=== PATIENT | male | born 1995 | race Caucasian/White ===

== ENCOUNTER 2016-12-15 05:07 | Inpatient (IN) | payer MEDICAID ==
[~2016-12-15] VITALS: Ht 167.6 cm; Wt 79.4 kg
[2016-12-15] MEDS ORDERED: POVIDONE-IODINE 10% 15 ML SOLUTION UD TP ONE (05:30)
[2016-12-15] MEDS ORDERED: albuterol IH (05:31)
[2016-12-15] MEDS ORDERED: PERTUSS(ACELL),DIPH,TET VAC/PF 0.5 ML VIAL IM ONE (07:00)
[2016-12-15] MEDS ORDERED: BACITRACIN 0.9 GM PACKET OINTMENT TP ONE (08:00)
[2016-12-15 09:11] LABS: APPEARANCE,URINE CLOUDY (CLEAR); GLUCOSE, URINE (UA) NEGATIVE (NEGATIVE); KETONES,URINE 40 mg/dL (NEGATIVE); LEUKOCYTE ESTERASE ,URINE NEGATIVE (NEGATIVE); OCCULT BLOOD,URINE NEGATIVE (NEGATIVE); PROTEIN,URINE TRACE (NEGATIVE)
[2016-12-15 09:12] LABS: ADD UA MICROSCOPIC YES
[2016-12-15 09:25] LABS: RBC,URINE None Seen /HPF (0-2)
[2016-12-15 09:26] LABS: SQUAMOUS EPITHELIAL CELL,UR Few /LPF (None Seen); URINALYSIS COMMENT Moderate Sperm seen.
[2016-12-15] MEDS: LORazepam 2 MG TABLET PO PRN ×2 (12:40→20:49)
[2016-12-15] MEDS: HALOPERIDOL 5 MG TABLET PO PRN ×2 (12:40→21:14)
[2016-12-15 16:16] VITALS: BP 129/66
[2016-12-15 16:49] VITALS: BP 129/66
[2016-12-15] MEDS ORDERED: ALBU8HFA IH (16:59)
[2016-12-15] MEDS ORDERED: IBUPROFEN 400 MG TABLET PO PRN (17:00)
[2016-12-15] MEDS ORDERED: ACETAMINOPHEN 325 MG TABLET PO PRN (17:00)
[2016-12-15] MEDS ORDERED: INFLUENZA VIRUS VACCINE QVS 2017-18 (3YR+)/PF 60 MCG/0.5 ML SYRINGE IM ONE (17:45)
[2016-12-15] MEDS ORDERED: HALOPERIDOL LACTATE 5 MG/ML VIAL IM ONE (22:45)
[2016-12-15] MEDS ORDERED: LORazepam 2 MG/ML VIAL IM ONE (22:45)
[2016-12-15] MEDS ORDERED: DiphenhydrAMINE HCL 50 MG/ML VIAL IM ONE (22:45)
[2016-12-16 08:32] VITALS: BP 108/58
[2016-12-16 09:02] LABS: BASOPHILS # (AUTO) 0.05 K/uL (0.00-0.20); BASOPHILS % (AUTO) 0.6 % (0.0-2.0); EOSINOPHILS # (AUTO) 0.42 K/uL (0.00-0.70); EOSINOPHILS % (AUTO) 4.64 % (1.0-6.0); HEMOGLOBIN 16.6 g/dL (13.5-17.5); LYMPHOCYTES # (AUTO) 3.5 K/uL (1.0-4.8); LYMPHOCYTES % (AUTO) 38.7 % (22.0-44.0); MEAN CORPUSCULAR HEMOGLOBIN 30.2 pg (26.0-34.0); MEAN CORPUSCULAR HGB CONC 33.8 G/dL (31.0-37.0); MEAN CORPUSCULAR VOLUME 89 fL (80-100); MONOCYTES # (AUTO) 0.9 K/uL (0.1-1.0); MONOCYTES % (AUTO) 9.9 % (2.0-9.0); NEUTROPHILS # (AUTO) 4.2 K/uL (1.8-7.7); NEUTROPHILS % (AUTO) 46.2 % (40.0-70.0); PLATELET COUNT (AUTO) 202 K/uL (150-450); RED BLOOD CELL COUNT(AUTO) 5.49 MIL/uL (4.50-5.90); RED CELL DISTRIBUTION WIDTH 12.2 % (11.5-14.5)
[2016-12-16] MEDS: LORazepam 2 MG TABLET PO PRN ×2 (09:49→17:14)
[2016-12-16] MEDS: HALOPERIDOL 5 MG TABLET PO PRN (09:49)
[2016-12-16 10:01] LABS: ALANINE AMINOTRANSFERASE 24 U/L (12-78); ALBUMIN 4.3 g/dL (3.4-5.0); ANION GAP 10 mmol/L (8-16); ASPARTATE AMINOTRANSFERASE 36 U/L (15-37); BILIRUBIN,TOTAL 0.8 mg/dL (0.1-1.0); CALCIUM, TOTAL 9.2 mg/dL (8.8-10.5); CARBON DIOXIDE 29 mmol/L (22-29); CHLORIDE 103 mmol/L (98-107); CHOL/HDL RATIO 2.7 (4.2-7.3); CREATININE 1.02 mg/dL (0.60-1.30); GLOMERULAR FILTR. RATE CALC > 60 mL/min (>60); POTASSIUM 3.9 mmol/L (3.5-5.1); SODIUM SERUM 142 mmol/L (136-145); THYROID STIMULATING HORMONE 1.35 uIU/mL (0.36-3.74); TOTAL PROTEIN, SERUM 7.6 g/dL (6.4-8.2); UREA NITROGEN, BLOOD 11 mg/dL (7-18)
[2016-12-16] MEDS: OLANZapine 5 MG RAPDIS TABLET PO SCH ×3 (11:02→17:14)
[2016-12-16 16:08] VITALS: BP 115/65
[2016-12-16] MEDS: ALBUTEROL SULFATE HFA 90 MCG/PUFF 8 GM INHALER IH PRN (17:41)
[2016-12-16] MEDS ORDERED: ACETAMINOPHEN 325 MG TABLET PO PRN (18:15)
[2016-12-16] MEDS ORDERED: IBUPROFEN 400 MG TABLET PO PRN (18:15)
[2016-12-17 08:42] VITALS: BP 104/62
[2016-12-17] MEDS: OLANZapine 5 MG RAPDIS TABLET PO SCH ×2 (08:59→16:56)
[2016-12-17] MEDS: LORazepam 2 MG TABLET PO PRN ×2 (09:00→16:57)
[2016-12-17 16:00] VITALS: BP 112/66
[2016-12-17] MEDS: ALBUTEROL SULFATE HFA 90 MCG/PUFF 8 GM INHALER IH PRN (22:29)
[2016-12-17] MEDS: ZOLPIDEM TARTRATE 10 MG TABLET PO PRN (22:29)
[2016-12-18 06:33] VITALS: BP 117/70
[2016-12-18 08:13] VITALS: BP 120/76
[2016-12-18] MEDS: LORazepam 2 MG TABLET PO PRN ×2 (08:37→16:57)
[2016-12-18] MEDS: OLANZapine 5 MG RAPDIS TABLET PO SCH ×2 (08:37→16:57)
[2016-12-18 16:00] VITALS: BP 114/67
[2016-12-18] MEDS: ZOLPIDEM TARTRATE 10 MG TABLET PO PRN (22:47)
[2016-12-19 00:05] VITALS: BP 102/66
[2016-12-19] MEDS: LORazepam 2 MG TABLET PO PRN (08:14)
[2016-12-19] MEDS: OLANZapine 5 MG RAPDIS TABLET PO SCH (08:14)
[2016-12-19 08:17] VITALS: BP 127/82
[2016-12-19] MEDS ORDERED: OLAN5TAB40 PO (14:00)
== END 2016-12-19 15:30 | disposition home or self-care (01) | DRG 750 ==
LOC: EMS 05:09 → B3A 14:55
PROVIDERS: ADMIT Psychiatry & Neurology Psychiatry; ATTEND Psychiatry & Neurology Child & Adolescent Psychiatry
DX: F20.0 Paranoid schizophrenia (principal); F29 Unspecified psychosis not due to a substance or known physiological condition; F12.90 Cannabis use, unspecified, uncomplicated; J45.909 Unspecified asthma, uncomplicated; S61.411A Laceration without foreign body of right hand, initial encounter; W45.8XXA Other foreign body or object entering through skin, initial encounter; Y93.89 Activity, other specified; Y92.89 Other specified places as the place of occurrence of the external cause; Y99.8 Other external cause status; Z28.21 Immunization not carried out because of patient refusal
CPT/HCPCS: 83036; 84443; 90715; 99285; J1200; J1630; J2060; J3535

== ENCOUNTER 2016-12-21 13:49 | Emergency (ER) | payer MEDICAID ==
[~2016-12-21 13:49] MED LIST: OLAN5TAB40 PO
== END 2016-12-21 14:06 | disposition left against medical advice (07) ==
LOC: EMS 13:57
DX: Z00.8 Encounter for other general examination (principal); Z53.21 Procedure and treatment not carried out due to patient leaving prior to being seen by health care provider

== ENCOUNTER 2016-12-21 20:21 | Emergency (ER) | payer MEDICAID, OTHER ==
[~2016-12-21] VITALS: Ht 170.2 cm; Wt 65.9 kg
[2016-12-21] MEDS ORDERED: OLANZapine 5 MG TABLET PO ONE (21:00)
[2016-12-21] MEDS ORDERED: LORazepam 1 MG TABLET PO ONE (21:00)
[2016-12-21 21:05] VITALS: BP 139/95
== END 2016-12-21 21:25 | disposition home or self-care (01) ==
LOC: EMS 20:24
DX: F20.9 Schizophrenia, unspecified (principal); F41.9 Anxiety disorder, unspecified; F15.10 Other stimulant abuse, uncomplicated; J45.909 Unspecified asthma, uncomplicated; F12.90 Cannabis use, unspecified, uncomplicated; F11.90 Opioid use, unspecified, uncomplicated
CPT/HCPCS: 99283; 99284

== ENCOUNTER 2016-12-22 17:17 | Emergency (ER) | payer OTHER ==
[~2016-12-22] VITALS: Ht 170.2 cm; Wt 70.5 kg
[2016-12-22 19:00] VITALS: BP 115/63
[2016-12-22] MEDS: HALOPERIDOL LACTATE 5 MG/ML VIAL IM ONE ×2 (19:00→19:04)
[2016-12-22] MEDS: DiphenhydrAMINE HCL 50 MG/ML VIAL IM ONE ×2 (19:01→19:03)
[2016-12-22] MEDS: LORazepam 2 MG/ML VIAL IM ONE ×2 (19:01→19:03)
[2016-12-22] MEDS ORDERED: LORazepam 1 MG TABLET PO ONE (19:15)
[2016-12-22] MEDS ORDERED: OLANZapine 5 MG TABLET PO ONE (19:15)
== END 2016-12-22 19:23 | disposition home or self-care (01) ==
LOC: EMS 17:18
DX: F19.959 Other psychoactive substance use, unspecified with psychoactive substance-induced psychotic disorder, unspecified (principal); F22 Delusional disorders; J45.909 Unspecified asthma, uncomplicated; F12.90 Cannabis use, unspecified, uncomplicated; F11.90 Opioid use, unspecified, uncomplicated
CPT/HCPCS: 99283; J1200; J1630; J2060

== ENCOUNTER 2022-12-21 17:01 | Inpatient (IN) | payer MEDICAID, OTHER ==
[~2022-12-21] VITALS: Ht 170.2 cm; Wt 70.4 kg
[~2022-12-21 17:01] MED LIST changes: -OLAN5TAB40 PO; +OLAN5TAB94 PO
[2022-12-21] MEDS ORDERED: ALBU18HF12 IH (17:22)
[2022-12-21 17:48] LABS: COVID AG,FIA SOURCE NASAL SWAB
[2022-12-21 18:06] LABS: SARS-COV2 (COVID) ANTIGEN,FIA Negative (Negative)
[2022-12-21 18:06] LABS: BASOPHILS % (AUTO) 0.6 % (0.0-2.0); EOSINOPHILS % (AUTO) 0.2 % (1.0-6.0); HEMATOCRIT 47.7 % (41-53); HEMOGLOBIN 16.4 g/dL (13.5-17.5); LYMPHOCYTES # (AUTO) 2.4 K/uL (1.0-4.8); LYMPHOCYTES % (AUTO) 21.8 % (22.0-44.0); MEAN CORPUSCULAR HGB CONC 34.3 G/dL (31.0-37.0); MEAN CORPUSCULAR VOLUME 88 fL (80-100); MONOCYTES # (AUTO) 0.9 K/uL (0.1-1.0); MONOCYTES % (AUTO) 7.9 % (2.0-9.0); NEUTROPHILS # (AUTO) 7.8 K/uL (1.8-7.7); NEUTROPHILS % (AUTO) 69.5 % (40.0-70.0); PLATELET COUNT (AUTO) 243 K/uL (150-450); RED BLOOD CELL COUNT(AUTO) 5.46 MIL/uL (4.50-5.90); RED CELL DISTRIBUTION WIDTH 12.4 % (11.5-14.5); WHITE BLOOD COUNT (AUTO) 11.2 K/uL (4.5-11.0)
[2022-12-21 18:12] LABS: ANION GAP 9 mmol/L (8-16); CALCIUM, TOTAL 9.4 mg/dL (8.8-10.5); CARBON DIOXIDE 28 mmol/L (22-29); CHLORIDE 99 mmol/L (98-107); CREATININE 1.19 mg/dL (0.60-1.30); GLOMERULAR FILTR. RATE CALC > 60 mL/min (>60); GLUCOSE,RANDOM 101 mg/dL (70-110); POTASSIUM 3.6 mmol/L (3.5-5.1); SODIUM SERUM 136 mmol/L (136-145); UREA NITROGEN, BLOOD 9 mg/dL (7-18)
[2022-12-21 18:17] LABS: ALANINE AMINOTRANSFERASE 23 U/L (12-78); ALBUMIN 4.1 g/dL (3.4-5.0); ALKALINE PHOSPHATASE 60 U/L (46-116); ASPARTATE AMINOTRANSFERASE 24 U/L (15-37); BILIRUBIN,TOTAL 0.7 mg/dL (0.1-1.0); TOTAL PROTEIN, SERUM 7.6 g/dL (6.4-8.2)
[2022-12-21 18:20] LABS: ALCOHOL, BLOOD (SERUM) < 3 mg/dL (0-10)
[2022-12-21] MEDS ORDERED: LORazepam 1 MG TABLET PO ONE (20:30)
[2022-12-21] MEDS ORDERED: HALOPERIDOL 5 MG TABLET PO ONE (20:30)
[2022-12-21] MEDS ORDERED: DiphenhydrAMINE HCL 25 MG CAPSULE PO ONE (20:30)
[2022-12-22] MEDS: LORazepam 2 MG TABLET PO PRN ×2 (12:03→21:57)
[2022-12-22] MEDS: HALOPERIDOL 5 MG TABLET PO PRN ×2 (12:03→21:57)
[2022-12-22] MEDS: ZOLPIDEM TARTRATE 10 MG TABLET PO PRN (21:57)
[2022-12-23] MEDS: OLANZapine 5 MG TABLET PO SCH ×2 (11:19→17:38)
[2022-12-23] MEDS ORDERED: INFLUENZA VIRUS VACCINE QVS 2023-24 (6MO+)/PF 60 MCG/0.5 ML SYRINGE IM. ONE (11:45)
[2022-12-23] MEDS: HALOPERIDOL 5 MG TABLET PO PRN (19:24)
[2022-12-23] MEDS: LORazepam 2 MG TABLET PO PRN (19:24)
[2022-12-23 20:33] VITALS: BP 125/73; PULSE 81; RESP 18; TEMP 97.9
[2022-12-23] MEDS: ZOLPIDEM TARTRATE 10 MG TABLET PO PRN (21:19)
[2022-12-24] MEDS ORDERED: MAGNESIUM HYDROXIDE SUSPENSION 30 ML UDCUP PO PRN (07:00)
[2022-12-24] MEDS ORDERED: ONDANSETRON HCL 4 MG TABLET PO PRN (07:00)
[2022-12-24] MEDS ORDERED: MAG HYDROX/AL HYDROX/SIMETH ES 30 ML SUSPENSION UDCUP PO PRN (07:00)
[2022-12-24] MEDS ORDERED: DOCUSATE SODIUM 100 MG CAPSULE PO PRN (07:00)
[2022-12-24] MEDS ORDERED: ACETAMINOPHEN 325 MG TABLET PO PRN (07:00)
[2022-12-24] MEDS ORDERED: LOPERAMIDE HCL 2 MG CAPSULE PO PRN (07:00)
[2022-12-24] MEDS ORDERED: CloNIDine HCL 0.1 MG TABLET PO PRN (07:00)
[2022-12-24] MEDS ORDERED: NICOTINE 14 MG/24 HOUR PATCH TD PRN (07:00)
[2022-12-24] MEDS ORDERED: GuaiFENesin/D-METHORPHAN [SUGAR-FREE] 200-20MG/10 ML SYRUP UDCUP PO PRN (07:00)
[2022-12-24] MEDS ORDERED: ALBUTEROL SULFATE HFA 90 MCG/PUFF 8 GM INHALER IH PRN (07:00)
[2022-12-24] MEDS ORDERED: PETROLATUM,WHITE 28 GM JELLY TP PRN (07:00)
[2022-12-24] MEDS ORDERED: IBUPROFEN 400 MG TABLET PO PRN (07:00)
[2022-12-24] MEDS: OLANZapine 5 MG TABLET PO SCH ×2 (08:21→16:24)
[2022-12-24 08:47] VITALS: BP 117/74; PULSE 86; RESP 16; TEMP 98
[2022-12-24] MEDS ORDERED: NICO-575 PO (15:32)
== END 2022-12-24 16:45 | disposition home or self-care (01) | DRG 750 ==
LOC: EMS 17:05 → 3EC 12-23 08:49
PROVIDERS: ADMIT Psychiatry & Neurology Psychiatry; ATTEND Psychiatry & Neurology Psychiatry
DX: F20.0 Paranoid schizophrenia (principal); D72.829 Elevated white blood cell count, unspecified; J45.909 Unspecified asthma, uncomplicated; F10.90 Alcohol use, unspecified, uncomplicated; Z20.822 Contact with and (suspected) exposure to COVID-19; F11.90 Opioid use, unspecified, uncomplicated; F19.90 Other psychoactive substance use, unspecified, uncomplicated; Z79.899 Other long term (current) drug therapy
CPT/HCPCS: 80053; 85025; 99285; G0480